=== PATIENT | male | born 1950 | race Caucasian/White ===

== ENCOUNTER → 2016-10-11 | Outpatient (CLI) | payer BC ==
--- NOTE | 2016-10-14 15:28 | REP ---
Chest x-ray: Two views. History: Abnormal chest CT [facility]. This study is retrieved. It is dated 13 September 2016 and is interpreted as showing a new 1.2 cm nodular density in the left lung apex. Chest x-ray findings: Comparison is made with a old chest x-ray from January 31, 2006. The lungs remain well inflated and free of infiltrate. Pleural angles are sharp. Heart size is normal. There are clips in the right upper quadrant of the abdomen post cholecystectomy. There are degenerative changes in the thoracic spine. No abnormal lung density is seen. Impression: No active disease seen radiographically. The nodule visible in the left suprahilar region on September 13, 2016 CT study is not visible radiographically. This should be followed up with chest CT, pulmonary medicine evaluation, and/or PET/CT. Signed by Jw Lea MD 10/14/2016 05:14 P
--- NOTE | 2016-10-14 15:30 | REP ---
Right upper quadrant sonography: History: Abnormal CT scan of the liver at [place]. The study and its report were retrieved dated [address] was reported as showing incidental findings of multiple hepatic cysts and renal cysts and hypo densities too small to characterize. Sonographic findings: Scanning through the right upper quadrant is performed. The gallbladder is surgically absent. Common bile duct is normal measuring 0.4 cm in greatest diameter. There is evidence of fatty infiltration of the liver. Multiple hepatic cysts are seen. The largest on the right measures 4.3 x 3.0 x 3.2 cm. There are two cysts in the left lobe measuring 2.0 x 1.6 x 1.6 and 2.5 x 3.2 x 2.1 cm. Multiple smaller cysts are seen. No mass lesion is observed sonographically. Pancreas is obscured by abdominal gas. Scan quality is inhibited by limited scanning windows. There is an upper pole cyst in the right kidney measuring 1.0 x 0.8 x 1.1 cm. Right renal dimensions are 12.1 x 6.0 x 5.2 cm. No hydronephrosis seen. Impression: Multiple hepatic cysts. A small cyst is seen in the upper pole right kidney. Scan quality is inhibited to some degree by subcostal scan windows. Signed by Jw Lea MD 10/14/2016 05:14 P
== END ==
LOC: M RAD 08:37
PROVIDERS: ATTEND Family Medicine
DX: R93.2 Abnormal findings on diagnostic imaging of liver and biliary tract (principal); R93.8 Abnormal findings on diagnostic imaging of other specified body structures; K76.89 Other specified diseases of liver; N28.1 Cyst of kidney, acquired

== ENCOUNTER → 2016-10-14 | Outpatient (REF) | payer BC | LOC: M SFHCADAM 08:55 | PROVIDERS: ATTEND Family Medicine | DX: Z12.5 Encounter for screening for malignant neoplasm of prostate (principal); E11.9 Type 2 diabetes mellitus without complications | CPT/HCPCS: 83036; G0103 ==

== ENCOUNTER → 2016-10-28 | Outpatient (REF) | payer BC ==
[2016-10-28 19:45] LABS: ALBUMIN 4.3 GM/DL (3.2-5.2); ALBUMIN/GLOBULIN RATIO 1.54 (1.00-1.93); ALKALINE PHOSPHATASE 58 U/L (45-117); ALT/SGPT 49 U/L (12-78); ANION GAP 8 MEQ/L (8-16); AST/SGOT 41 U/L (15-37); BILIRUBIN,TOTAL 1.1 MG/DL (0.2-1.0); BLOOD UREA NITROGEN 14 MG/DL (7-18); CALCIUM LEVEL 9.4 MG/DL (8.8-10.2); CARBON DIOXIDE LEVEL 31 MEQ/L (21-32); CHLORIDE LEVEL 101 MEQ/L (98-107); CREATININE FOR GFR 0.97 MG/DL (0.70-1.30); GLOMERULAR FILTRATION RATE > 60.0 (>49); GLUCOSE, FASTING 115 MG/DL (80-110); POTASSIUM SERUM 4.2 MEQ/L (3.5-5.1); SODIUM LEVEL 140 MEQ/L (136-145); TOTAL PROTEIN 7.1 GM/DL (6.4-8.2)
== END ==
LOC: M SFHCADAM 14:46
PROVIDERS: ATTEND Family Medicine
DX: R91.1 Solitary pulmonary nodule (principal)

== ENCOUNTER → 2016-10-31 | Outpatient (CLI) | payer BC ==
[~2016-10-31] MED LIST: ISOVUE-370 76% 100ML VIAL (Q9967) As Ordered ONE
--- NOTE | 2016-11-01 04:49 | REP ---
Clinical: Follow-up pulmonary nodule. Technique: Axial contrast enhanced images from the thoracic inlet to the upper abdomen using 100 ml Isovue 370 intravenous contrast material with coronal and sagittal re-formations. Comparison: Outside examination dated 09/13/2016. Findings: The previously identified 12 mm consolidation in the left apex has resolved. There is a small new focus of opacity in the posterior right upper lobe having a "tree-in-bud" appearance suggesting a small focal area of pneumonitis. The lung [place] are otherwise essentially well-aerated, symmetric, and without further consolidation, nodule or mass lesion. No pleural effusion/reaction or pneumothorax. Mediastinum demonstrates atherosclerotic changes to the coronary arteries without cardiomegaly or pericardial effusion. Thoracic aorta is normal caliber and without aneurysm or dissection. No axillary, hilar, or mediastinal adenopathy is appreciated. Diffuse low density changes throughout the liver remains stable and most compatible with cysts. Musculoskeletal structures demonstrate age-related changes. Impression: 1. Previously identified 12 mm nodular density in the left apex has resolved. 2. Small area of tree in bud opacity suggesting small focal area of pneumonitis in the posterior right upper lobe. Follow-up at 3-6 months may be warranted. 3. Stable hepatic cysts. Signed by Jeffery Dickson MD 11/01/2016 04:41 A
== END ==
LOC: M RAD 13:44
PROVIDERS: ATTEND Family Medicine
DX: R91.1 Solitary pulmonary nodule (principal); K76.89 Other specified diseases of liver
CPT/HCPCS: 71260; Q9967

== ENCOUNTER → 2018-03-23 | Outpatient (REF) | payer MEDICARE ==
[2018-03-23 12:44] LABS: ALBUMIN 3.8 GM/DL (3.2-5.2); ALBUMIN/GLOBULIN RATIO 1.27 (1.00-1.93); ALKALINE PHOSPHATASE 53 U/L (45-117); ALT/SGPT 41 U/L (12-78); ANION GAP 9 MEQ/L (8-16); AST/SGOT 31 U/L (7-37); BLOOD UREA NITROGEN 17 MG/DL (7-18); CALCIUM LEVEL 8.8 MG/DL (8.8-10.2); CARBON DIOXIDE LEVEL 27 MEQ/L (21-32); CHLORIDE LEVEL 106 MEQ/L (98-107); CREATININE FOR GFR 0.93 MG/DL (0.70-1.30); GLOMERULAR FILTRATION RATE > 60.0 (>49); GLUCOSE, FASTING 140 MG/DL (70-100); POTASSIUM SERUM 3.9 MEQ/L (3.5-5.1); SODIUM LEVEL 142 MEQ/L (136-145); TOTAL PROTEIN 6.8 GM/DL (6.4-8.2)
[2018-03-23 13:19] LABS: ESTIMATED AVERAGE GLUCOSE 140 MG/DL (60-110); HEMOGLOBIN A1c 6.5 %
== END ==
LOC: M SFHCADAM 12:11
DX: E11.9 Type 2 diabetes mellitus without complications (principal)
CPT/HCPCS: 80053

== ENCOUNTER → 2019-03-10 | Outpatient (REF) | payer MEDICARE ==
[2019-03-10 13:01] LABS: HEMATOCRIT 46.5 % (42.0-52.0); HEMOGLOBIN 16.8 g/dl (13.5-17.5); MEAN CORPUSCULAR HEMOGLOBIN 32.2 pg (27.0-33.0); MEAN CORPUSCULAR HGB CONC 36.1 g/dl (32.0-36.5); MEAN CORPUSCULAR VOLUME 89.3 fl (80.0-96.0); PLATELET COUNT, AUTOMATED 194 10^3/uL (150-450); RED BLOOD COUNT 5.21 10^6/uL (4.30-6.10); WHITE BLOOD COUNT 7.3 10^3/uL (4.0-10.0)
[2019-03-10 13:22] LABS: HEMOGLOBIN A1c 7.3 %
[2019-03-10 13:28] LABS: ALBUMIN 3.7 GM/DL (3.2-5.2); ALT/SGPT 66 U/L (12-78); BILIRUBIN,TOTAL 1.4 MG/DL (0.2-1.0); BLOOD UREA NITROGEN 16 MG/DL (7-18); CALCIUM LEVEL 9.5 MG/DL (8.8-10.2); CARBON DIOXIDE LEVEL 27 MEQ/L (21-32); CHLORIDE LEVEL 103 MEQ/L (98-107); CHOLESTEROL LEVEL 134 MG/DL (<200); CHOLESTEROL RISK RATIO 3.526 (<5); CREATININE FOR GFR 0.94 MG/DL (0.70-1.30); GLOMERULAR FILTRATION RATE > 60.0 (>49); GLUCOSE, FASTING 158 MG/DL (70-100); HDL CHOLESTEROL 38 MG/DL (>40); LDL CHOLESTEROL 69 MG/DL (<100); NON-HDL-C 96 MG/DL; POTASSIUM SERUM 4.2 MEQ/L (3.5-5.1); SODIUM LEVEL 137 MEQ/L (136-145); TRIGLYCERIDES LEVEL 135 MG/DL (<150)
== END ==
LOC: M SFHCADAM 07:51
PROVIDERS: ATTEND Family Medicine
DX: I10 Essential (primary) hypertension (principal); E11.9 Type 2 diabetes mellitus without complications; Z12.5 Encounter for screening for malignant neoplasm of prostate
CPT/HCPCS: 80053; 80061; 83036; 85027; G0103

== ENCOUNTER 2019-03-31 08:37 | Day surgery (SDC) | payer MEDICARE ==
[~2019-03-31] VITALS: Ht 172.7 cm; Wt 92.1 kg
[~2019-03-31 08:37] MED LIST changes: +ASPI81TA85 PO; +CETI10CA13 PO; +D3 H2000 PO; +FISH1000 PO; -ISOVUE-370 76% 100ML VIAL (Q9967) As Ordered ONE; +LISI10TA4 PO; +MULTCAP PO; +NADO20TA PO; +NS 1,000 ML IV ONE; +ROSU5TAB5 PO; +VITA500T PO
[2019-03-31 09:39] VITALS: BP 152/68
[2019-03-31] MEDS ORDERED: PROPOFOL 200 MG/20 ML VIAL As Ordered ONE ×2 (10:00→10:12)
[2019-03-31] MEDS ORDERED: NADOLOL 20MG TABLET PO ONE (10:00)
--- NOTE | 2019-03-31 10:19 | ROOR ---
Patient Name: Aftab Torres Procedure Date: 03/31/2019 9:54 AM Date of : 1950 Age: 68 Room: [facility] Gender: Male Note Status: Finalized Procedure: Total Colonoscopy to Cecum Indications: High risk colon cancer surveillance: Personal history of colonic polyps, Last colonoscopy: 2013 Providers: Gus Atwood MD Referring MD: Bita SNOW DO Requesting Provider: Medicines: Monitored Anesthesia Care Complications: No immediate complications. Procedure: Pre-Anesthesia Assessment: - The heart rate, respiratory rate, oxygen saturations, blood pressure, adequacy of pulmonary ventilation, and response to care were monitored throughout the procedure. The Colonoscope was introduced through the anus and advanced to the cecum, identified by appendiceal orifice and ileocecal valve. The colonoscopy was performed without difficulty. The patient tolerated the procedure well. The quality of the bowel preparation was excellent. Findings: The perianal and digital rectal examinations were normal. Non-bleeding internal hemorrhoids were found during retroflexion. The hemorrhoids were small and Grade I (internal hemorrhoids that do not prolapse). Scattered small-mouthed diverticula were found in the recto-sigmoid colon, sigmoid colon and descending colon. The exam was otherwise without abnormality on direct and retroflexion views. Impression: - Non-bleeding internal hemorrhoids. - Diverticulosis in the recto-sigmoid colon, in the sigmoid colon and in the descending colon. - The examination was otherwise normal on direct and retroflexion views. - No specimens collected. - The exam was otherwise normal to the cecum. Recommendation: - Patient has a contact number available for emergencies. The signs and symptoms of potential delayed complications were discussed with the patient. Return to normal activities tomorrow. Written discharge instructions were provided to the patient. - High fiber diet. - Discharge patient to home. - Continue present medications. - Repeat colonoscopy in 5 years for surveillance. - Return to referring physician. - The findings and recommendations were discussed with the patient's family. Gus Atwood MD Gus Atwood MD 03/31/2019 10:18:45 AM Electronically signed by Gus Atwood MD Number of Addenda: 0 Note Initiated On: 03/31/2019 9:54 AM Estimated Blood Loss: Estimated blood loss: none.
[2019-03-31 10:48] VITALS: BP 113/67
== END 2019-03-31 10:50 | disposition home or self-care (01) ==
LOC: M OPP 08:37
PROVIDERS: ATTEND Internal Medicine Gastroenterology
DX: K64.0 First degree hemorrhoids (principal); K57.30 Diverticulosis of large intestine without perforation or abscess without bleeding; Z12.11 Encounter for screening for malignant neoplasm of colon; Z86.010 Personal history of colon polyps

== ENCOUNTER → 2019-05-20 | Outpatient (REF) | payer MEDICARE ==
[~2019-05-20] MED LIST changes: -NS 1,000 ML IV ONE
[2019-05-20 13:44] LABS: HEMOGLOBIN A1c 5.6 %
== END ==
LOC: M SFHCADAM 11:05
PROVIDERS: ATTEND Family Medicine
DX: E11.9 Type 2 diabetes mellitus without complications (principal)